=== PATIENT | female | born 1995 | race Caucasian/White ===

== ENCOUNTER 2023-01-23 07:40 | Outpatient (CLI) | payer BC, MEDICAID, SELFPAY ==
[2023-01-23 07:55] VITALS: BP 135/88; PULSE 87
[2023-01-23 07:56] VITALS: BP 130/84; PULSE 100; TEMP 37.2
[2023-01-23 08:12] VITALS: BP 126/79; PULSE 78
[2023-01-23 08:25] VITALS: BMI 24.9
--- NOTE | 2023-01-23 15:31 | OB.TRI.NOTE ---
HPI - General General Date of Service: 01/23/23 HPI Narrative MARS SMITH, is a 27 F 2 39 weeks who presents c/o ctx NST FHR Rate Baby A Baseline: 125 Variability:: Moderate Accelerations:: 15 x 15 Decelerations:: None NST Reactive:: Yes FHR Category:: Category I Uterine Activity:: irregular Assessment & Plan (1) 39 weeks gestation of : (2) Velamentous insertion of umbilical cord in third trimester: PLAN: Plan @ 39 weeks, early labor Pt ctx spaced out prior to dc home- cervix with minimal change 3.5cm per nursing. labor precautions were reviewed. pt wants natural labor.
== END 2023-01-23 10:20 | disposition home or self-care (01) ==
LOC: WPOUT 07:45 → WP 07:46
PROVIDERS: Referring Provider Obstetrics & Gynecology; Visit Provider Obstetrics & Gynecology
DX: O43.123 Velamentous insertion of umbilical cord, third trimester (principal); Z3A.39 39 weeks gestation of pregnancy
CPT/HCPCS: 59025; 59050; 99221; G0378

== ENCOUNTER 2023-02-01 09:30 | Inpatient (IN) | payer BC, MEDICAID, SELFPAY ==
[2023-02-01] VITALS (32 sets, daily range): BP systolic 98–123; BP diastolic 53–83; PULSE 55–95; RESP 16–18; TEMP 36.1–37; O2SAT 92–100; BMI 25.4
--- NOTE | 2023-02-01 | FLU_PTH ---
PATIENT: MARS ABEBE LOC: WP U#:[id number] AGE/SX: 27/F ROOM: [facility] RE02/01/[address]: Dr. Kandice Montenegro, : 1995 BED: 1 DIS: 02/03/2023 SPEC #: [id number] RECD: 02/01/23 17:14 STATUS: LAISHA TONIO #: [id number] KENDRICK: 02/01/23 00:[address]: Kandice Montenegro DEPT: CYTOLOGY RECD BY: Ney Roberts Tissues: OVARIAN CYST Procedures: Special Stain Group II Surgery Specimen Level IV Cytospin Fluid HEADER OPERATION: Drained right ovarian cyst PRE-OP DIAGNOSIS: Right ovarian cyst TISSUE SUBMITTED: Right ovarian cyst fluid for cytology DIAGNOSIS CYTOLOGY Fine needle aspiration, right ovarian cyst (cytospin and cell block): Benign cyst contents. AM:reyna 02/05/2023 CYTOLOGY STUDY Slides are reviewed. CYTOLOGY GROSS Received is 40 ml of yellow cloudy fluid labeled with the patient's name and and designated per the requisition as right ovarian cyst. Submitted for cytology preparation including cell block. / reyna 02/04/2023 TC:5 CPT: 96858, 17042
[2023-02-01] MEDS: Lactated Ringers 1,000 ML 50 ML IV (09:45)
[2023-02-01] MEDS: LACTATED RINGERS 500 ML 999 ML IV (09:45)
[2023-02-01 09:54] LABS: Absolute Lymphocyte Count 2.05 X10^3/uL (0.83-4.51); Basophil# 0.02 X10^3/uL; Basophil% 0.2 % (0-1); Eosinophil# 0.02 X10^3/uL; Eosinophils% 0.2 % (0-5); Hematocrit 34.9 % (37-47); Hemoglobin 11.6 g/dL (12.0-15.0); Lymphocyte # 2.05 X10^3/ul (0.83-4.51); Lymphocyte % 20.7 % (19-41); Mean Corp Hgb Conc 33.2 g/dL (32-36); Mean Corpuscular Hgb 29.1 pg (27.0-32.0); Mean Corpuscular Volume 87.7 fL (81-99); Monocyte# 0.68 X10^3/uL; Monocyte% 6.9 % (0-10); NRBC Flagged by Analyzer 0 % (0-5); Neutrophil # 7.04 X10^3/uL (2.7-7.7); Neutrophil % 71.3 % (47-70); Platelet Count 162 K/mm3 (150-450); RBC Distribution Width CV 13.1 % (11.6-14.6); RBC Distribution Width SD 41.7 fl (35.1-43.9); Red Blood Count 3.98 M/mm3 (4.2-5.4); White Blood Count 9.9 K/mm3 (4.4-11.0)
[2023-02-01 10:27] LABS: Syphilis Antibodies Non-reactive
[2023-02-01] MEDS: fentaNYL-bupivacaine (epidural) 100 ML BAG EPIDURAL (10:50)
--- NOTE | 2023-02-01 11:04 | PCM.HP.OB ---
HPI - General General Date of Admission: 02/01/23 HPI Narrative MARS SMITH, is a 27 F @ 40.3 weeks who presents c/o contractions - found to be 5cm PFSH PFSH Medical History (Updated 02/01/23 @ 11:[address] Aure Bauer MD) Anemia Anxiety Depression Scoliosis Home Medications ferrous sulfate 325 mg (65 mg iron) tablet mg PO DAILY anemia 02/01/23 [History Last Taken 01/31/23 08:00 325 mg] vit no.37-iron fum 29 mg iron-folic acid 1 mg chewable tablet (PreNata) tab PO DAILY 02/01/23 [History Last Taken 01/31/23 08:00 1 TAB] Allergy/AdvReac Type Severity Reaction Status Date / Time No Known Allergies Allergy Verified 02/01/23 09:51 Surgical History (Updated 02/01/23 @ 10:02 by Sharon De La Rosa) Previous back surgery Social History Smoking Status: Never smoker History Elective abortions Hx Para 0 Spontaneous abortions Hx # Term Pregnancies Ectopic pregnancies Hx # Pregnancies Multiple births # of living children NST FHR Rate Baby A Baseline: 130 Variability:: Moderate Accelerations:: 15 x 15 Decelerations:: None NST Reactive:: Yes FHR Category:: Category I Uterine Activity:: 2-3 Vital Signs Vital Signs Vital Signs: 02/01/23 10:26 02/01/23 10:26 02/01/23 10:31 Temperature Temperature Source Pulse Rate 73 73 Blood Pressure BP Systolic BP Diastolic Pulse Ox 100 02/01/23 10:31 02/01/23 10:33 02/01/23 10:33 Temperature Temperature Source Pulse Rate 71 Blood Pressure 123/74 H BP Systolic 123 BP Diastolic 74 Pulse Ox 100 02/01/23 10:34 02/01/23 10:34 02/01/23 10:36 Temperature Temperature Source Pulse Rate 74 Blood Pressure 115/58 L BP Systolic 115 BP Diastolic 58 Pulse Ox 92 02/01/23 10:36 02/01/23 10:37 02/01/23 10:37 Temperature Temperature Source Pulse Rate 74 68 Blood Pressure 114/60 BP Systolic 114 BP Diastolic 60 Pulse Ox 02/01/23 10:36 02/01/23 10:41 02/01/23 10:41 Temperature Temperature Source Pulse Rate 66 Blood Pressure 109/67 BP Systolic 109 BP Diastolic 67 Pulse Ox 100 02/01/23 10:41 02/01/23 10:42 02/01/23 10:42 Temperature Temperature Source Pulse Rate 69 Blood Pressure 104/55 L BP Systolic 104 BP Diastolic 55 Pulse Ox 100 02/01/23 10:47 02/01/23 10:47 02/01/23 10:26 Temperature Temperature Source Temporal Pulse Rate 71 Blood Pressure BP Systolic BP Diastolic Pulse Ox 100 02/01/23 10:26 02/01/23 10:52 02/01/23 10:52 Temperature 97.2 F L Temperature Source Pulse Rate 75 Blood Pressure 113/66 BP Systolic 113 BP Diastolic 66 Pulse Ox 02/01/23 10:52 02/01/23 10:52 02/01/23 10:52 Temperature Temperature Source Pulse Rate 76 Blood Pressure BP Systolic BP Diastolic Pulse Ox 93 100 02/01/23 10:56 02/01/23 10:56 02/01/23 10:57 Temperature Temperature Source Pulse Rate 78 82 Blood Pressure 117/68 BP Systolic 117 BP Diastolic 68 Pulse Ox 02/01/23 10:57 02/01/23 11:01 02/01/23 11:01 Temperature Temperature Source Pulse Rate 85 Blood Pressure 107/67 BP Systolic 107 BP Diastolic 67 Pulse Ox 100 02/01/23 11:02 02/01/23 11:02 Temperature Temperature Source Pulse Rate 77 Blood Pressure BP Systolic BP Diastolic Pulse Ox 100 Weight Weight: 65.091 kg Body Mass Index (BMI) 25.4 Labs Labs Labs: Blood Type A POSITIVE Antibody Screen NEGATIVE Hct 34.9 % (37-47) L Hgb 11.6 g/dL (12.0-15.0) L Syphilis Total Ab Non-reactive Assessment & Plan (1) Velamentous insertion of umbilical cord in third trimester: (2) 40 weeks gestation of : (3) Active labor at term: PLAN: Plan Admit to L&D Montior FHR/TOCO Epidural if requested for pain Monitor VS Anticipate SROM - clear fluid
--- NOTE | 2023-02-01 12:12 | PCM.PN.BLA ---
Progress Note VE performed- /-1 Forebag appreciated- ruptured - clear fluid.
--- NOTE | 2023-02-01 14:16 | PCM.PN.BLA ---
Progress Note pt is complete- and +1 station. Will start pushing.
[2023-02-01] MEDS: Lactated Ringers 1,000 ML 200 ML IV (14:24)
[2023-02-01] MEDS: Cefazolin 2 GM in 0.9% Normal Saline (100mL Bag) 100 ML IV (15:49)
[2023-02-01] MEDS: Azithromycin 500 MG in Dextrose 5%-Water (250mL Bag) 250 ML 250 MG IV (15:57)
--- NOTE | 2023-02-01 16:27 | CASEMGMT ---
Social Work Labor and Delivery Sw responded to JERONIMO. Sw introduced self to father of baby. Sw waited with FOB outside of operating room and assessed for needs or concerns. Sw provided support. Sw answered questions and provided education as able. When code was clear and FOB was with MOB in operating room sw left JERONIMO. Rachell Hunter, SKIN DIVER, ROTARY DUMP OPERATOR
--- NOTE | 2023-02-01 16:36 | PCM.PN.BLA ---
Progress Note Called for FHT bradycardia. FHT 80-90 bpm for 8 min. Pt pushing. Assessment & Plan Assessment/Plan (1) Active labor at term: PLAN: Called for bradycardia with pushing after nurse tried position changes and resuscitative measures. Pt was taken to the OR for evaluation. I was at bedside in the OR to assess pt. 10/100/0 with caput. Had patient push with a few contractions and FHT 70-80 bpm. Given intolerance recommended a section. Unable to perform vacuum assisted vaginal delivery given station. No descent with pushing while in the OR. Discussed r/b/a of a section with and consent obtained. (2) 40 weeks gestation of : (3) Velamentous insertion of umbilical cord in third trimester:
--- NOTE | 2023-02-01 16:45 | OP.PCM_ITS ---
Problems Associated Problem List Diagnoses (1) Active labor at term: (2) 40 weeks gestation of : (3) Velamentous insertion of umbilical cord in third trimester: (4) intolerance to labor, delivered, current hospitalization: Report of Operation Date of Procedure: 02/01/23 Pre-Operative Diagnosis: 40 week gestation, active labor, velamentous cord insertion, intolerance to labor Post-Operative Diagnosis: As above Surgery/Procedure Performed:: PLTCS via pfannenstiel incision Description of Surgical Findings:: VMI in cephalic presentation and OP weighing 8 lb 0 oz, and not well engaged in pelvis. Apgars 7, 9. Clear fluid. Normal appearing uterus and left adnexa. Right ovary with a 5 cm simple appearing fluid filled cyst. Right fallopian tube normal appearing. Surgeon: Kandice Montenegro composite layup worker: Jaylyn LE Type of Anesthesia: Epidural Special Medications: None Specimen's removed: Placenta Drains: Sanders Estimated Blood Loss (mL): 800 Fluids Replaced: 900 mL Description of Procedure: The patient was taken to the operating room where she was prepped and draped in the dorsal supine position with a leftward tilt. A Pfannenstiel skin incision was made using a scalpel and this was carried down to the underlying layer of fascia. The fascia was incised in the midline. The fascial incision was extended bluntly with lateral traction. The rectus muscles were in the midline. The peritoneum was entered bluntly with good visualization of the bladder. The peritoneal incision was extended bluntly with lateral traction. A bladder blade was inserted. A low transverse incision was made on the uterus with a scalpel. The uterine incision was extended with traction both cephalad and caudad. The head was elevated out of the pelvis and flexed. The head followed by the shoulders and the body of the infant were delivered without any force, traction, or delay. The cord was immediately clamped and cut, and the was handed off to the awaiting nursery staff. Cord gases were sent. The placenta was removed with manual extraction. The uterus was exteriorized. Uterus was cleared of all clot and debris. The hysterotomy was closed with 1-0 Vicryl in a running locked fashion. Several additional [id number] sutures were placed for hemostasis. There was a 5 cm right ovarian simple appearing cyst noted. Discussed with the patient the findings, and recommended drainage of the cyst to avoid torsion. Using a Bovie cautery a small subcentimeter incision was made within the cyst wall, and the cyst was drained for clear fluid which was sent for cytology. Hemostasis was achieved with the Bovie cautery. The uterus was placed back into the abdomen. The hysterotomy was again noted to be hemostatic. Kal was placed over the lower uterine segment. The subfascial space was noted to be hemostatic. The fascia was closed with strata fix in a running fashion. Subcutaneous space was irrigated and hemostatic. The subcutaneous space was reapproximated using 3-0 Vicryl. The skin was closed with 4-0 Monocryl in a subcuticular fashion. A dressing was placed. Instrument, sponge, and sharp counts were correct. The patient was taken to the recovery in stable condition. The JOURNEYMAN PIPEFITTER was present for the entire case and assisted with prepping the patient, delivery of infant, and closure. Grafts/Implants Used: None Procedure Start Time: 15:44 Procedure Stop Time: 16:27 Complications None Admit VTE Documentation VTE Present on Admission: No VTE Mechan Device Prophylaxis: SCD's
[2023-02-01 17:16] LABS: Pathology Specimen OB SEE PATHOLOGY REPORT
[2023-02-01] MEDS: Ketorolac 30 MG/ML Syringe IV ×2 (17:17→22:58)
[2023-02-01] MEDS: Oxytocin 15 Units/NS 250ml 15 UNITS/250 ML IV.SOLN 83 UNITS IV (17:18)
[2023-02-01] MEDS: Acetaminophen 500 MG Tablet 1000 MG PO (18:21)
--- NOTE | 2023-02-01 18:42 | NURSING ---
Epidural catheter removed by this RN, blue tip intact
[2023-02-02] VITALS (7 sets, daily range): BP systolic 87–111; BP diastolic 42–70; PULSE 80–87; RESP 15–18; TEMP 36.1–36.9; O2SAT 97–100
[2023-02-02] MEDS: Acetaminophen 500 MG Tablet 1000 MG PO ×4 (00:44→18:41)
[2023-02-02] MEDS: Ketorolac 30 MG/ML Syringe IV ×2 (05:29→11:33)
[2023-02-02 05:51] LABS: Hematocrit 26.9 % (37-47); Hemoglobin 8.8 g/dL (12.0-15.0); Mean Corp Hgb Conc 32.7 g/dL (32-36); Mean Corpuscular Hgb 29.7 pg (27.0-32.0); Mean Corpuscular Volume 90.9 fL (81-99); Platelet Count 131 K/mm3 (150-450); RBC Distribution Width CV 13.1 % (11.6-14.6); Red Blood Count 2.96 M/mm3 (4.2-5.4); White Blood Count 10.7 K/mm3 (4.4-11.0)
[2023-02-02] MEDS: Senna/Docusate Sodium 1 Tablet PO (10:23)
--- NOTE | 2023-02-02 10:25 | PN.OBGYN_ITS ---
Subjective Subjective Patient is doing well. Pain is well controlled. She is ambulating without lightheadedness or dizziness. She has voided once since the Sanders catheter has been out. She is tolerating regular diet without nausea or vomiting. She denies chest pain, shortness of breath, leg pain. Lochia is normal. She is breast-feeding without complaints. Objective Data Objective Data Vital Signs: Vital Signs Temp Pulse Resp BP Pulse Ox O2 Del Method 97.2 F L 81 18 109/62 98 Room Air 02/02/23 08:00 02/02/23 08:00 02/02/23 08:00 02/02/23 08:00 02/02/23 08:00 02/02/23 08:00 Oxygen Delivery Method Room Air Weight: 143 lb 8 oz Body Mass Index (BMI) 25.4 Intake & Output: Intake and Output for Last 24 Hours 01/31/23 02/01/23 02/02/23 23:59 23:59 23:59 Intake Total 2945.00 / 2945.00 Output Total 1400 / 1400 100 / 100 Balance 1545.00 / 1545.00 -100 / -100 Lab / Micro Data 02/02/23 05:40 Labs: Laboratory Results - last 24 hr 02/01/23 09:45: Syphilis Total Ab Non-reactive, Blood Type A POSITIVE, Antibody Screen NEGATIVE 02/02/23 05:40: WBC 10.7, RBC 2.96 L, Hgb 8.8 L, Hct 26.9 L, MCV 90.9, MCH 29.7, MCHC 32.7, RDW Std Deviation 43.0, RDW Coeff of Enriqueta 13.1, Plt Count 131 L, MPV 12.0 Physical Exam Const alert and no apparent distress General Appearance: comfortable Resp normal respiratory effort GI soft to palpation GI Narrative: ATTP, non acute, dressing is c/d/i Extremity normal to inspection and no calf tenderness Assessment & Plan (1) Delivery by section: PLAN: Pt is postop day 1 from a section. She is doing well. Breast- feeding without complaints. Routine care. Anticipate discharge to home tomorrow. Discussed simple cyst at time of section that was drained of clear fluid in size and concern for torsion. Discussed she is a good TOLAC candidate for future pregnancies. (2) Acute blood loss anemia: PLAN: No symptoms of anemia this morning. We will give a dose of IV Venofer and recheck CBC in the morning.
[2023-02-02] MEDS: Iron Sucrose Complex 200 MG in 0.9% Normal Saline (100mL Bag) 100 ML 220 MG IV (11:32)
[2023-02-02] MEDS: Lactated Ringers 1,000 ML 100 ML IV (11:32)
[2023-02-02] MEDS: 0.9% Saline Lock 10 ML Syringe IV ×2 (11:32→23:35)
--- NOTE | 2023-02-02 13:21 | CASEMGMT ---
Social Work Assessment Labor and Delivery Unit Date/Time of referral: 02/01/23, 19:23 Referred by: Kandice Montenegro Date/Time of Intervention: 02/02/23, 1pm Reason for referral: History of depression and anxiety History obtained from: MOB and FOB, chart Household composition: MOB, FOB, and now baby Wild. MOB and SIL have been together for about 1 year. This is the first child for both of them. Patient's parent/guardian status: FOREIGN has guardianship of this baby Medical history: MOB--history of anemia, scoliosis, anxiety and depression. Baby: born 02[birth year], 15:47, 3.635 kg, Apgars 7 and 9 at 1 and 5 minutes. Educational Status: Both FOREIGN and SIL have some college, finished high school. Financial Status: No financial concerns. 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 She plans to return to work in 4-6 weeks. Her aunt will help with childcare supplies: They have all needed supplies including diapers, wipes, clothing, car seat, bassinet, crib, clothing, access to bottles and formula if needed. Childcare/Caregivers: FOREIGN's aunt Jocy. Transportation: They have two cars Programs/Agencies/Children's Services/Legal Issues: None Behavioral Health: Substance abuse--no history for MOB or FOB. Mental Health--no history for FOB. FOREIGN states has anxiety and depression. She has never been on medication, was in counseling but it has been several years. FOREIGN states it was up and down during her , but she is okay at present. We spoke about signs and symptoms of anxiety and depression and the importance of reaching out to physician if experiencing symptoms. We spoke about some women utilizing medication until hormones stabilize, if having symptoms of anxiety and depression. FOREIGN states understanding about this. FOREIGN explained her mother when she was 5, so this has been on her mind a lot recently now that she has had a baby. SW encouaged FOREIGN to explore counseling as it may be helpful for her. Family/Social Stressors: None Support Systems: MOB's sisters, FONaman's family though they are in [place] Depression and anxiety/Shaken Baby/Safe Sleeping/Help Me Grow/Mental Health Resources: LOVE gave MOB resources on all of these topics and reviewed them, in particular PPD and anxiety, and warning signs. Assessment: MOB and FOB both appropriate, answered all questions completely. MOB holding baby and the first time SW in the room. FOB holding the baby the second time SW in room. No concerns at this time. Parents both appropriate in their responses and care of child. Plan: Baby to go home w/parents at discharge. No further social service needs anticipated at this time. SONY Villatoro
[2023-02-02] MEDS: SimETHICONE 80 MG Chewable Tablet PO ×2 (17:37→23:35)
[2023-02-02] MEDS: Ibuprofen 600 MG Tablet PO ×2 (17:37→23:32)
[2023-02-03] MEDS: Acetaminophen 500 MG Tablet 1000 MG PO ×3 (00:56→12:15)
[2023-02-03 01:00] VITALS: BP 110/57; PULSE 62; RESP 16; TEMP 36.4
[2023-02-03] MEDS: Ibuprofen 600 MG Tablet PO ×2 (05:53→12:15)
[2023-02-03 06:10] LABS: Hematocrit 26.7 % (37-47); Hemoglobin 8.6 g/dL (12.0-15.0); Mean Corp Hgb Conc 32.2 g/dL (32-36); Mean Corpuscular Hgb 29.5 pg (27.0-32.0); Mean Corpuscular Volume 91.4 fL (81-99); Mean Platelet Vol. 11.6 fl (6.2-12.0); Platelet Count 148 K/mm3 (150-450); RBC Distribution Width CV 13.3 % (11.6-14.6); RBC Distribution Width SD 44.7 fl (35.1-43.9); Red Blood Count 2.92 M/mm3 (4.2-5.4); White Blood Count 11.7 K/mm3 (4.4-11.0)
[2023-02-03] MEDS: SimETHICONE 80 MG Chewable Tablet PO (08:51)
[2023-02-03] MEDS: Senna/Docusate Sodium 1 Tablet PO (08:51)
[2023-02-03 08:56] VITALS: BP 113/65; PULSE 78; RESP 18; TEMP 36.6; O2SAT 98
--- NOTE | 2023-02-03 10:16 | DCINST_ITS ---
Discharge Instructions Diet Discharge Diet: No restrictions Activity Discharge Activity: May Not Drive (until you feel strong enough to slam on a brake or turn a steering wheel sharply) and May Shower May resume sexual activity in: 6 weeks (nothing in vagina and no soaking in water) Ice area for (Minutes): 15 Weight Bearing Status: Weight bearing as tolerated Lifting Restrictions: nothing heavier than baby Dressing / Incision Call your doctor if your incision/area has: Continuous Slow Oozing, Sudden Increased Bleeding, Increased Pain/ Swelling, Increased Redness, Foul Smelling Discharge and Swelling at the incision site Call your doctor if you observe: Fever of 101 or Higher, Coldness, Increased Amanda n, Numbness or Tingling, Change in Color, Inability to urinate, Inability to have a bowel movement, Using more than 1 pad per hour, Shortness of breath, Dizziness, Fainting spells, Swelling in the ankles, Chest pain, Increased palpitations (irregular heartbeat), Calf discomfort and Uncontrolled pain Suture Line Care: Avoid Pulling/Pushing and Avoid Pinching/Bending Remove Dressing in: 3 days (remove in shower on day 5. ok to remove sooner if saturated with water or if causing skin irritation) Cleanse incision/area with: Soap & Water Follow Up Care Please Follow Up With: Kandice Montenegro DO When: 1 week for incision check 6 weeks for visit Test Results: Test results from this visit will be discussed in further detail at your follow- up appointment, if applicable. Discharge Plan Admission Admit Date/Time: 02/01/23 09:30 Primary Reason for Your Visit: delivery Attending Provider: Kandice Montenegro Instructions Patient Instructions: After a Discharge Orders/Prescriptions Prescriptions: New oxycodone 5 mg tablet 5 mg PO Q6H PRN (Reason: pain) 7 Days Qty: 10 0RF ibuprofen 600 mg tablet 600 mg PO Q6H PRN (Reason: pain) Qty: 30 0RF docusate sodium [Colace] 100 mg capsule 100 mg PO BID Qty: 30 0RF ferrous sulfate 325 mg (65 mg iron) tablet 325 mg PO QODAY Qty: 30 0RF Continued ferrous sulfate 325 mg (65 mg iron) tablet PO DAILY Patient Comments: TAKE 1 TABLET BY MOUTH EVERY OTHER DAY WITH SIP OF OJ PreNata 29 mg iron- 1 mg tablet,chewable PO DAILY Disposition Disposition (needs filled in before D/C Order can be placed): Home, Self Care
--- NOTE | 2023-02-03 10:19 | PCM.PN.OB ---
Subjective Subjective Desires discharge today. She is ambulating and voiding without difficulty. She is tolerating regular diet without nausea or vomiting. He is normal. She is breast-feeding without complaints. She denies chest pain, shortness of breath, lightheadedness, dizziness, leg pain. She is passing gas. Objective Data Objective Data Vital Signs: Vital Signs Temp Pulse Resp BP Pulse Ox O2 Del Method 97.9 F 78 18 113/65 98 Room Air 02/03/23 08:56 02/03/23 08:56 02/03/23 08:56 02/03/23 08:56 02/03/23 08:56 02/03/23 08:56 Oxygen Delivery Method Room Air Weight: 143 lb 8 oz Body Mass Index (BMI) 25.4 Intake & Output: Intake and Output for Last 24 Hours 02/01/23 02/02/23 02/03/23 23:59 23:59 23:59 Intake Total 2945.00 / 2945.00 256.67 / 256.67 Output Total 1400 / 1400 950 / 950 Balance 1545.00 / 1545.00 -693.33 / -693.33 Lab / Micro Data 02/03/23 05:55 Labs: Laboratory Results - last 24 hr 02/03/23 05:55: WBC 11.7 H, RBC 2.92 L, Hgb 8.6 L, Hct 26.7 L, MCV 91.4, MCH 29.5, MCHC 32.2, RDW Std Deviation 44.7 H, RDW Coeff of Enriqueta 13.3, Plt Count 148 L, MPV 11.6 Physical Exam Const alert and no apparent distress General Appearance: comfortable HEENT normocephalic Resp normal respiratory effort GI soft to palpation GI Narrative: ATTP, non acute, dressing c/d/i Extremity no calf tenderness Extremity Narrative: Trace edema bilaterally Assessment & Plan (1) Acute blood loss anemia: PLAN: Continue iron at home. She has no symptoms of anemia. (2) Delivery by section: PLAN: Patient is postoperative day 2 from a section. Patient and are doing well. She is breast-feeding without complaints. She desires discharge today. Discharge instructions were reviewed.
--- NOTE | 2023-02-03 10:21 | PCM.DC.SUM ---
Providers Date of Admission: 02/01/23 Date of Discharge: 02/03/23 Reason For Visit: Diagnosis Discharge Diagnosis (1) Acute blood loss anemia: Status: Acute Code(s): D62 - Acute posthemorrhagic anemia Plan: Continue iron at home. She has no symptoms of anemia. (2) Delivery by section: Status: Acute Plan: Patient is postoperative day 2 from a section. Patient and are doing well. She is breast-feeding without complaints. She desires discharge today. Discharge instructions were reviewed. Medications at Discharge Home Medications ferrous sulfate 325 mg (65 mg iron) tablet mg PO DAILY anemia 02/01/23 vit no.37-iron fum 29 mg iron-folic acid 1 mg chewable tablet (PreNata) tab PO DAILY 02/01/23 docusate sodium 100 mg capsule (Colace) 100 mg PO BID #30 caps 02/03/23 ferrous sulfate 325 mg (65 mg iron) tablet 325 mg PO QODAY #30 tabs 02/03/23 ibuprofen 600 mg tablet 600 mg PO Q6H PRN pain #30 tabs 02/03/23 oxycodone 5 mg tablet 5 mg PO Q6H PRN pain 7 days #10 tabs 02/03/23 Hospital Course Summary of Care Provided Hospital Course: Pt is a 27-year-old G1 who presented in labor at 40 weeks gestation. She progressed to complete and was pushing. bradycardia was then noted. She then underwent a primary section for intolerance to labor. See operative report for details. She had acute blood loss anemia postoperatively. She received a dose of IV iron and was to continue iron at home orally. She was ambulating, voiding, tolerating regular diet, and pain was controlled on day of discharge. She was discharged home on postoperative day 2 with follow-up in the office. Weight / BMI Weight Weight: 143 lb 8 oz Body Mass Index (BMI) 25.4 ABG / Lab / Microbiology Data 02/03/23 05:55 Laboratory: Laboratory Results - last 24 hr 02/03/23 05:55: WBC 11.7 H, RBC 2.92 L, Hgb 8.6 L, Hct 26.7 L, MCV 91.4, MCH 29.5, MCHC 32.2, RDW Std Deviation 44.7 H, RDW Coeff of Enriqueta 13.3, Plt Count 148 L, MPV 11.6 D/C Instructions Discharge Diet: No restrictions May resume sexual activity in: 6 weeks (nothing in vagina and no soaking in water) Ice area for (Minutes): 15 Weight Bearing Status: Weight bearing as tolerated Call your doctor if your incision/area has: Continuous Slow Oozing, Sudden Increased Bleeding, Increased Pain/ Swelling, Increased Redness, Foul Smelling Discharge and Swelling at the incision site Call your doctor if you observe: Fever of 101 or Higher, Coldness, Increased Pain, Numbness or Tingling, Change in Color, Inability to urinate, Inability to have a bowel movement, Using more than 1 pad per hour, Shortness of breath, Dizziness, Fainting spells, Swelling in the ankles, Chest pain, Increased palpitations (irregular heartbeat), Calf discomfort and Uncontrolled pain Suture Line Care: Avoid Pulling/Pushing and Avoid Pinching/Bending Cleanse incision/area with: Soap & Water Please Follow Up With: Kandice Montenegro DO When: 1 week for incision check 6 weeks for visit Meaningful Use Info Meaningful Use Diagnoses (Choose all that apply): None applicable Discharge Plan Admission Admit Date/Time: 02/01/23 09:30 Primary Reason for Your Visit: delivery Attending Provider: Kandice Montenegro Instructions Patient Instructions: After a Discharge Orders/Prescriptions Prescriptions: New oxycodone 5 mg tablet 5 mg PO Q6H PRN (Reason: pain) 7 Days Qty: 10 0RF ibuprofen 600 mg tablet 600 mg PO Q6H PRN (Reason: pain) Qty: 30 0RF docusate sodium [Colace] 100 mg capsule 100 mg PO BID Qty: 30 0RF ferrous sulfate 325 mg (65 mg iron) tablet 325 mg PO QODAY Qty: 30 0RF Continued ferrous sulfate 325 mg (65 mg iron) tablet PO DAILY Patient Comments: TAKE 1 TABLET BY MOUTH EVERY OTHER DAY WITH SIP OF OJ PreNata 29 mg iron- 1 mg tablet,chewable PO DAILY Disposition Disposition (needs filled in before D/C Order can be placed): Home, Self Care
== END 2023-02-03 12:25 | disposition home or self-care (01) | DRG 787 ==
LOC: WPOUT 09:41 → WP 09:42
PROVIDERS: Obstetrics & Gynecology; Admitting Provider Obstetrics & Gynecology; Referring Provider Obstetrics & Gynecology; Visit Provider Obstetrics & Gynecology
DX: O43.123 Velamentous insertion of umbilical cord, third trimester (principal); D62 Acute posthemorrhagic anemia; O90.81 Anemia of the puerperium; O34.83 Maternal care for other abnormalities of pelvic organs, third trimester; N83.201 Unspecified ovarian cyst, right side; O76 Abnormality in fetal heart rate and rhythm complicating labor and delivery; Z37.0 Single live birth; Z3A.40 40 weeks gestation of pregnancy
CPT/HCPCS: 59025; 59050; 85025; 85027; 86780; 86850; 86900; 86901; 88108; 88305; 88313; 99221; J1756; J7120; A4216; G0378; J2405